=== PATIENT | female | born 1985 | race Caucasian/White ===

== ENCOUNTER 2017-08-20 23:18 | Emergency (ER) | payer OTHER ==
[~2017-08-20] VITALS: Ht 167.6 cm; Wt 102.0 kg
[~2017-08-20 23:18] MED LIST: ALPRAZOLAM1 MG PO; AMBIEN5 MG PO; AMOXICILLIN500 MG PO; AURALGAN14.8 ML LEFT EAR; CEFDINIR300 MG PO; CELEXA20 MG PO; CIPRO HC OTIC S10 ML LEFT EAR; FLONASE16 G1 BOTH NARES; FUROSEMIDE20 MG PO; INDOCIN50 MG PO; NAPROSYN500 MG PO; NOHOMEMEDS; NORCO 5/3251 TABLET PO; ROBITUSSIN AC,T10 ML PO; ULTRACET1 TABLET PO; VICODIN,LORT1 TABLET PO
[2017-08-21] MEDS ORDERED: MOTRIN600 MG PO (00:54)
[2017-08-21 01:11] VITALS: BP 122/99
== END 2017-08-21 01:15 | disposition home or self-care (01) ==
LOC: EME 23:18
DX: S40.012A Contusion of left shoulder, initial encounter (principal); W22.8XXA Striking against or struck by other objects, initial encounter; Y92.007 Garden or yard of unspecified non-institutional (private) residence as the place of occurrence of the external cause; Z88.5 Allergy status to narcotic agent
CPT/HCPCS: 73030; 99281; 99283